=== PATIENT | male | born 1960 | race Caucasian/White ===

== ENCOUNTER 2017-02-05 10:32 | Outpatient (CLI) | payer MEDICARE ==
[2017-02-05 11:02] LABS: MEAN CORPUSCULAR HEMOGLOBIN 33.5 pg (28.0-34.0); MEAN CORPUSCULAR VOLUME 96.2 fl (80.0-100.0)
[2017-02-05 11:28] LABS: eGFR (African) > 60; eGFR (Non-African) > 60
[2017-02-05 11:41] LABS: EOSINOPHILS % 5 % (0-7); MONOCYTES % 5 % (0-11); SEGMENTED NEUTROPHILS % 50 % (39-79)
== END 2017-02-05 10:33 ==
LOC: LAB 10:32
PROVIDERS: ATTEND Psychiatry & Neurology Psychiatry
DX: E11.9 Type 2 diabetes mellitus without complications (principal); F31.81 Bipolar II disorder
CPT/HCPCS: 36415; 80053; 80061; 80164; 83036; 84443; 85025

== ENCOUNTER 2017-08-17 11:18 | Outpatient (CLI) | payer MEDICARE ==
[2017-08-17 11:42] LABS: BASOPHILS % 0.7 (0.0-1.5); EOSINOPHILS % 5.9 % (0.0-6.8); MEAN CORPUSCULAR HEMOGLOBIN 32.9 pg (28.0-34.0); MEAN CORPUSCULAR VOLUME 96.8 fl (80.0-100.0); MONOCYTES % 5.9 % (0.0-11.0); NEUTROPHILS # 2.7 # k/uL (1.4-7.7)
[2017-08-17 12:19] LABS: eGFR (African) > 60; eGFR (Non-African) > 60
== END 2017-08-17 11:20 ==
LOC: LAB 11:18
PROVIDERS: ATTEND Family Medicine
DX: Z79.899 Other long term (current) drug therapy (principal)
CPT/HCPCS: 36415; 80053; 80061; 80164; 82607; 83036; 84403; 84443; 85025; 86803

== ENCOUNTER 2017-08-25 08:36 | Outpatient (CLI) | payer MEDICARE | END 2017-08-25 08:37 | LOC: LAB 08:36 | PROVIDERS: ATTEND Family Medicine | DX: E29.1 Testicular hypofunction (principal); Z12.5 Encounter for screening for malignant neoplasm of prostate | CPT/HCPCS: 36415; 84153; 84403 ==

== ENCOUNTER 2017-10-07 09:04 | Outpatient (CLI) | payer MEDICARE | END 2017-10-07 09:05 | LOC: LAB 09:04 | PROVIDERS: ATTEND Family Medicine | DX: E34.9 Endocrine disorder, unspecified (principal) | CPT/HCPCS: 36415; 84403 ==

== ENCOUNTER 2018-05-31 08:51 | Outpatient (CLI) | payer MEDICARE ==
[2018-05-31 09:06] LABS: MEAN CORPUSCULAR HEMOGLOBIN 32.9 pg (28.0-34.0); MEAN CORPUSCULAR VOLUME 95.9 fl (80.0-100.0)
[2018-05-31 09:44] LABS: eGFR (African) > 60; eGFR (Non-African) > 60
== END 2018-05-31 08:53 ==
LOC: LAB 08:51
PROVIDERS: ATTEND Family Medicine
DX: E11.42 Type 2 diabetes mellitus with diabetic polyneuropathy (principal); Z79.899 Other long term (current) drug therapy; F31.4 Bipolar disorder, current episode depressed, severe, without psychotic features
CPT/HCPCS: 36415; 80053; 80061; 80164; 83036; 85027